=== PATIENT | female | born 1945 | race Two or more races ===

== ENCOUNTER 2017-09-17 10:01 | Outpatient (CLI) | payer OTHER | END 2017-09-17 10:04 | disposition home or self-care (01) | LOC: MAMO-SONO 10:01 | DX: Z12.31 Encounter for screening mammogram for malignant neoplasm of breast (principal); Z87.898 Personal history of other specified conditions; N62 Hypertrophy of breast ==

== ENCOUNTER 2017-09-17 10:14 | Outpatient (CLI) | payer OTHER | END 2017-09-17 13:19 | disposition home or self-care (01) | LOC: NUCLEAR 10:14 | DX: M81.0 Age-related osteoporosis without current pathological fracture (principal) ==

== ENCOUNTER → 2017-09-17 15:16 | Outpatient (CLI) | payer OTHER | END | disposition home or self-care (01) | LOC: LAB 08:32 | DX: I10 Essential (primary) hypertension (principal); E11.9 Type 2 diabetes mellitus without complications; E03.8 Other specified hypothyroidism; M81.0 Age-related osteoporosis without current pathological fracture; M19.90 Unspecified osteoarthritis, unspecified site; K90.1 Tropical sprue; D64.0 Hereditary sideroblastic anemia; M06.4 Inflammatory polyarthropathy; Z12.31 Encounter for screening mammogram for malignant neoplasm of breast; E78.2 Mixed hyperlipidemia ==

== ENCOUNTER → 2017-09-17 | Outpatient (CLI) | payer OTHER ==
[~2017-09-17] MED LIST: CALTRATE PLUS T1 TAB; EFFEXOR25 MG; EVISTA60 MG; NEURONTIN600 MG
== END | disposition home or self-care (01) ==
LOC: RAD 09:36
DX: M12.9 Arthropathy, unspecified (principal); M19.90 Unspecified osteoarthritis, unspecified site; M46.47 Discitis, unspecified, lumbosacral region

== ENCOUNTER 2017-10-24 13:36 | Emergency (ER) | payer OTHER ==
[~2017-10-24] VITALS: Ht 152.4 cm; Wt 63.5 kg
== END 2017-10-24 21:01 | disposition home or self-care (01) ==
LOC: ER 13:36
DX: K52.9 Noninfective gastroenteritis and colitis, unspecified (principal)

== ENCOUNTER 2018-01-06 14:26 | Outpatient (CLI) | payer OTHER | END 2018-01-06 14:35 | disposition home or self-care (01) | LOC: SONOGRAMA 14:26 | DX: N83.01 Follicular cyst of right ovary (principal); N83.02 Follicular cyst of left ovary ==

== ENCOUNTER 2018-01-14 10:33 | Outpatient (CLI) | payer OTHER | END 2018-01-14 10:40 | disposition home or self-care (01) | LOC: RAD 10:33 → TOM 10:33 → RAD 10:40 → TOM 11:00 | DX: M19.90 Unspecified osteoarthritis, unspecified site (principal); M12.88 Other specific arthropathies, not elsewhere classified, other specified site ==

== ENCOUNTER 2018-01-17 09:34 | Outpatient (CLI) | payer OTHER | END 2018-01-17 17:00 | disposition home or self-care (01) | LOC: TOM 09:34 | DX: R10.9 Unspecified abdominal pain (principal) | CPT/HCPCS: 74178; Q9965 ==

== ENCOUNTER 2018-03-10 13:16 | Emergency (ER) | payer OTHER ==
[~2018-03-10] VITALS: Ht 152.4 cm; Wt 63.5 kg
[2018-03-10] MEDS ORDERED: PRILOSEC2.5 MG (13:44)
[2018-03-10] MEDS ORDERED: RELAGESIC 5001 EACH PO (17:36)
== END 2018-03-10 17:51 | disposition home or self-care (01) ==
LOC: ER 13:16
DX: S00.33XA Contusion of nose, initial encounter (principal); S80.02XA Contusion of left knee, initial encounter; S50.01XA Contusion of right elbow, initial encounter; W18.39XA Other fall on same level, initial encounter; Y93.01 Activity, walking, marching and hiking; Y92.238 Other place in hospital as the place of occurrence of the external cause; Y99.8 Other external cause status

== ENCOUNTER 2018-04-21 14:00 | Outpatient (CLI) | payer OTHER ==
[~2018-04-21 14:00] MED LIST changes: +PRILOSEC2.5 MG; +RELAGESIC 5001 EACH PO
== END 2018-04-21 14:10 | disposition home or self-care (01) ==
LOC: RAD 14:00 → SONOGRAMA 14:00 → RAD 14:10
DX: M12.811 Other specific arthropathies, not elsewhere classified, right shoulder (principal); M19.011 Primary osteoarthritis, right shoulder

== ENCOUNTER 2019-03-04 10:22 | Outpatient (CLI) | payer OTHER | END 2019-03-04 10:30 | disposition home or self-care (01) | LOC: RAD 10:22 | DX: J45.41 Moderate persistent asthma with (acute) exacerbation (principal) ==

== ENCOUNTER 2019-04-20 12:27 | Outpatient (CLI) | payer OTHER | END 2019-04-20 12:28 | disposition home or self-care (01) | LOC: RAD 12:27 | DX: M20.41 Other hammer toe(s) (acquired), right foot (principal) ==

== ENCOUNTER 2019-07-21 10:17 | Outpatient (CLI) | payer OTHER | END 2019-07-21 10:40 | disposition home or self-care (01) | LOC: RAD 10:17 → MRI 10:45 | DX: N63.11 Unspecified lump in the right breast, upper outer quadrant (principal); G31.84 Mild cognitive impairment of uncertain or unknown etiology; Z12.31 Encounter for screening mammogram for malignant neoplasm of breast | CPT/HCPCS: 70551 ==

== ENCOUNTER → 2019-09-23 | Outpatient (CLI) | payer OTHER | END | disposition home or self-care (01) | LOC: NUCLEAR 14:00 | DX: M81.0 Age-related osteoporosis without current pathological fracture (principal) ==

== ENCOUNTER 2019-10-27 08:13 | Outpatient (CLI) | payer OTHER | END 2019-10-27 08:26 | disposition home or self-care (01) | LOC: TOM 08:13 | DX: R10.84 Generalized abdominal pain (principal) ==

== ENCOUNTER 2020-12-19 11:45 | Outpatient (CLI) | payer OTHER | END 2020-12-19 12:13 | disposition home or self-care (01) | LOC: MAMO-SONO 11:45 | PROVIDERS: ATTEND Obstetrics & Gynecology | DX: Z12.31 Encounter for screening mammogram for malignant neoplasm of breast (principal); Z87.898 Personal history of other specified conditions; N60.11 Diffuse cystic mastopathy of right breast; N60.12 Diffuse cystic mastopathy of left breast; N64.59 Other signs and symptoms in breast ==

== ENCOUNTER 2021-12-06 10:59 | Outpatient (CLI) | payer OTHER | END 2021-12-06 11:01 | disposition home or self-care (01) | LOC: SONOGRAMA 10:59 | PROVIDERS: ATTEND Internal Medicine Cardiovascular Disease | DX: M12.9 Arthropathy, unspecified (principal) ==

== ENCOUNTER 2021-12-28 14:25 | Outpatient (CLI) | payer OTHER | END 2021-12-28 14:30 | disposition home or self-care (01) | LOC: NUCLEAR 14:25 | PROVIDERS: ATTEND Internal Medicine Cardiovascular Disease | DX: M81.0 Age-related osteoporosis without current pathological fracture (principal) ==

== ENCOUNTER 2022-01-11 13:34 | Outpatient (CLI) | payer OTHER | END 2022-01-11 13:40 | disposition home or self-care (01) | LOC: RAD 13:34 | PROVIDERS: ATTEND Internal Medicine Pulmonary Disease | DX: J45.30 Mild persistent asthma, uncomplicated (principal); R05.9 Cough, unspecified ==

== ENCOUNTER 2022-02-02 11:50 | Outpatient (CLI) | payer OTHER | END 2022-02-02 11:57 | disposition home or self-care (01) | LOC: RAD 11:50 | PROVIDERS: ATTEND Physical Medicine & Rehabilitation | DX: M54.2 Cervicalgia (principal); M54.50 Low back pain, unspecified ==

== ENCOUNTER 2022-06-20 14:49 | Outpatient (CLI) | payer OTHER | END 2022-06-20 14:52 | disposition home or self-care (01) | LOC: RAD 14:49 | PROVIDERS: ATTEND Physical Medicine & Rehabilitation | DX: M25.512 Pain in left shoulder (principal) ==

== ENCOUNTER 2023-03-27 10:07 | Outpatient (CLI) | payer OTHER | END 2023-03-27 10:13 | disposition home or self-care (01) | LOC: RAD 10:07 | PROVIDERS: ATTEND Internal Medicine Pulmonary Disease | DX: J45.41 Moderate persistent asthma with (acute) exacerbation (principal); R06.02 Shortness of breath; U09.9 Post COVID-19 condition, unspecified ==

== ENCOUNTER 2023-09-24 10:37 | Outpatient (CLI) | payer OTHER | END 2023-09-24 10:50 | disposition home or self-care (01) | LOC: MRI 10:37 | PROVIDERS: ATTEND Physical Medicine & Rehabilitation | DX: M25.512 Pain in left shoulder (principal); M75.102 Unspecified rotator cuff tear or rupture of left shoulder, not specified as traumatic; G31.84 Mild cognitive impairment of uncertain or unknown etiology | CPT/HCPCS: 70551; 73221 ==

== ENCOUNTER 2023-10-18 08:01 | Outpatient (CLI) | payer OTHER | END 2023-10-18 08:02 | disposition home or self-care (01) | LOC: NUCLEAR 08:01 | PROVIDERS: ATTEND Chiropractor | DX: I67.89 Other cerebrovascular disease (principal) ==

== ENCOUNTER 2023-11-13 14:59 | Outpatient (CLI) | payer OTHER | END 2023-11-13 15:21 | disposition home or self-care (01) | LOC: RAD 14:59 | PROVIDERS: ATTEND Physical Medicine & Rehabilitation | DX: M54.2 Cervicalgia (principal); M54.50 Low back pain, unspecified; M54.6 Pain in thoracic spine ==

== ENCOUNTER 2024-06-11 14:01 | Outpatient (CLI) | payer OTHER | END 2024-06-11 14:07 | disposition home or self-care (01) | LOC: RAD 14:01 | PROVIDERS: ATTEND Physical Medicine & Rehabilitation | DX: M79.642 Pain in left hand (principal); W19.XXXA Unspecified fall, initial encounter ==

== ENCOUNTER 2024-11-17 09:30 | Outpatient (CLI) | payer OTHER | END 2024-11-17 09:37 | disposition home or self-care (01) | LOC: RAD 09:30 | PROVIDERS: ATTEND Physical Medicine & Rehabilitation | DX: M54.2 Cervicalgia (principal); M54.50 Low back pain, unspecified; M54.6 Pain in thoracic spine ==

== ENCOUNTER 2024-12-18 13:38 | Outpatient (CLI) | payer OTHER | END 2024-12-18 13:44 | disposition home or self-care (01) | LOC: RAD 13:38 | PROVIDERS: ATTEND Podiatrist | DX: S22.39XA Fracture of one rib, unspecified side, initial encounter for closed fracture (principal); X58.XXXA Exposure to other specified factors, initial encounter; Y93.9 Activity, unspecified; Y92.9 Unspecified place or not applicable; Y99.9 Unspecified external cause status ==